=== PATIENT | male | born 1950 | race Caucasian/White ===

== ENCOUNTER 2016-10-12 10:33 | Day surgery (SDC) | payer OTHER ==
[2016-10-10 14:18] VITALS: BMI 29.8
[~2016-10-12 10:33] MED LIST: LACTATED RINGERS 1,000 ML IV SCH
[2016-10-12 11:04] VITALS: RESP 16; TEMP 97.7
[2016-10-12] MEDS ORDERED: PROPOFOL 10 MG/ML 20 ML VIAL IV ONE (11:31)
[2016-10-12] MEDS ORDERED: LIDOCAINE 1% INJ 10MG/ML (20 ML MDV) ONE (11:31)
--- NOTE | 2016-10-12 12:16 | P.PCN ---
Date of Procedure: 10/12/16 Procedure(s) Performed: BRIEF HISTORY: Patient is a 66-year-old pleasant white male, scheduled for an elective colonoscopy as a part of screening for colon rectal neoplasia PROCEDURE PERFORMED: Colonoscopy with snare polypectomy PREOPERATIVE DIAGNOSIS: Screening for colon cancer. IV sedation per Anesthesia. PROCEDURE: After informed consent was obtained, the patient, was brought into the endoscopy unit. IV sedation was administered by Anesthesia under continuous monitoring. Digital rectal examination was normal. Initially the Olympus CF- 160 flexible video colonoscope was then inserted in the rectum, gradually advanced into the ascending colon with moderate to severe difficulty. At one point and the scope was changed and a pediatric colonoscope was then introduced into the rectum. Despite multiple attempts I was not able to advance the scope into the cecum but the ileocecal valve and part of the cecum could be visualized and appeared normal. Careful examination was performed as the scope was gradually being withdrawn. Ileocecal valve appeared normal. Prep was excellent. Mucosa of the ascending colon, appeared normal. In the transverse colon there was a 5 mm polyp removed by snare polypectomy. In the descending colon there was a 5 mm polyp removed by snare polypectomy. In the sigmoid colon there was a 1 cm polyp removed by snare polypectomy. The rest of the transverse colon, descending colon, sigmoid colon, and rectum appeared normal. Retroflexion was performed in the rectum and no lesions were seen. The patient tolerated the procedure well. IMPRESSION: 5 mm transverse colon polyp status post polypectomy 5 mm descending colon polyp serous was snare polypectomy 1 cm sigmoid colon polyp serous was snare polypectomy RECOMMENDATIONS: Findings of this examination were discussed with the patient as well as his family. He was advised to follow with the biopsy results. If the biopsy shows a tubular adenoma he can have a repeat colonoscopy in 5 years.
[2016-10-12 12:50] VITALS: BP 138/79; PULSE 67
== END 2016-10-12 12:56 | disposition home or self-care (01) ==
LOC: ORWHC2ENDO 10:33
PROVIDERS: ATTEND Internal Medicine Gastroenterology
DX: Z12.11 Encounter for screening for malignant neoplasm of colon (principal); D12.4 Benign neoplasm of descending colon; K63.5 Polyp of colon; I25.10 Atherosclerotic heart disease of native coronary artery without angina pectoris; I10 Essential (primary) hypertension; Z87.891 Personal history of nicotine dependence; E78.5 Hyperlipidemia, unspecified; N40.0 Benign prostatic hyperplasia without lower urinary tract symptoms; K21.9 Gastro-esophageal reflux disease without esophagitis; Z79.82 Long term (current) use of aspirin; Z79.899 Other long term (current) drug therapy
CPT/HCPCS: 88305; 45385; J2001; J2704

== ENCOUNTER 2017-03-08 07:55 | Day surgery (SDC) | payer OTHER ==
[2017-03-05 13:23] VITALS: BMI 31.8
[~2017-03-08 07:55] MED LIST changes: +ASPIRIN 325 MG TAB PO ONE; -LACTATED RINGERS 1,000 ML IV SCH; +SODIUM CHLORIDE 0.9% 1,000 ML in EMPTY BAG 1 BAG IV ONE
[2017-03-08 08:12] VITALS: TEMP 97.8
[2017-03-08] MEDS ORDERED: MIDAZOLAM 2 MG/2 ML VIAL IV ONE (09:25)
[2017-03-08] MEDS ORDERED: LIDOCAINE 2% INJ 20 MG/ML SQ ONE (09:29)
[2017-03-08] MEDS ORDERED: HYDROmorphone 2 MG/ML 1 ML SYRINGE IV ONE (09:34)
[2017-03-08] MEDS ORDERED: IODIXANOL 270 MG/ML 50 ML ML INTRAARTER ONE (09:56)
[2017-03-08] MEDS ORDERED: SODIUM CHLORIDE 0.9% 1,000 ML IV SCH (10:00)
--- NOTE | 2017-03-08 10:39 | AN ---
ANGIOGRAPHY REPORT DATE OF SERVICE: 03/08/2017 PERFORMING PHYSICIAN: Librado Pickard MD, sheet metal assembler. PROCEDURE PERFORMED: 1. An abdominal aortogram. 2. Bilateral lower extremities runoff. 3. Selective right external iliac artery angiogram. 4. Gradient measurement across the right external iliac artery. INDICATION: This is a pleasant 66-year-old gentleman who was experiencing bilateral lower extremity discomfort seems to be intermittent claudication. He underwent an arterial duplex study, which showed moderate to severe bilateral femoral-popliteal disease. He was brought today to undergo a peripheral angiogram. APPROACH: Right common femoral artery. COMPLICATION: None. LEVEL OF SEDATION: Moderate with sedation length of 30 minutes. PROCEDURE DESCRIPTION: After obtaining an informed consent, the patient was brought to the cardiac sawyer cork slabs. The right common femoral artery was cannulated using micropuncture technique, the micropuncture wire passed easily then I placed a 5-Singaporean sheath in the right common femoral artery. Subsequently I did an abdominal aortogram and bilateral lower extremity runoff using 5-Singaporean pigtail catheter which was initially placed at the level of the renal arteries. Then it was pulled into above the bifurcation of the aorta to right and left common iliac arteries. After that, I did pressure gradient measurement across the right external iliac artery as well as selective right external iliac artery angiogram. The procedure was completed without any complication. SELECTIVE PERIPHERAL ANGIOGRAM: 1. The abdominal aorta appears to be calcified with mild disease only. It bifurcates into right common iliac artery and left common iliac artery. 2. COMMON ILIAC ARTERIES: The right and left common iliac arteries are calcified with mild disease only. 3. EXTERNAL ILIAC ARTERIES: The right external iliac artery appeared to be diseased in the range of 50% to 60%, but the gradient measurement across it came in to be 20 mm Hg. The left external iliac artery appears to be angiographically normal. 4. INTERNAL ILIAC ARTERIES: The right and left internal iliac arteries appeared to be patent. 5. COMMON FEMORAL ARTERIES: The right and left common femoral arteries are angiographically normal. 6. PROFUNDA: The right and left profunda are patent. 7. The SFA: The right SFA appeared to have lesion in the range of 50% only. The left SFA has 2 lesions, one in the proximal portion appeared to be in the range of 70% to 80% and one distally appeared to be in the range of 70% to 80% as well. 8. POPLITEAL: The right and left popliteal appeared to be angiographically normal. 9. BELOW THE KNEE. There are 3 vessels runoff below the knee bilaterally. CONCLUSION: 1. Intermediate to severe disease involving the right external iliac artery with a gradient measurement across it came into be about 20 mmHg. 2. Severe disease involving the left SFA. POSTPROCEDURE MANAGEMENT: The patient will be scheduled to undergo a GOLD ASSAYER and stenting of the right external iliac artery as well as atherectomy and GOLD ASSAYER of the left SFA. MMODL / IJN: [id number] /
--- NOTE | 2017-03-08 13:33 | IR ---
EXAMINATION TYPE: IR angio abdominal w runoff DATE OF EXAM: 03/08/2017 COMPARISON: NONE HISTORY: Peripheral vascular occlusive disease. Fluoroscopy was provided to the referring clinician. See dictated report from cardiology.
[2017-03-08 14:10] VITALS: BP 130/81; PULSE 64; RESP 18
== END 2017-03-08 16:22 | disposition home or self-care (01) ==
LOC: CATHCVL 07:55
PROVIDERS: ATTEND Internal Medicine Interventional Cardiology
DX: I70.213 Atherosclerosis of native arteries of extremities with intermittent claudication, bilateral legs (principal); I25.10 Atherosclerotic heart disease of native coronary artery without angina pectoris; I10 Essential (primary) hypertension; Z87.891 Personal history of nicotine dependence; I42.9 Cardiomyopathy, unspecified; M19.90 Unspecified osteoarthritis, unspecified site; E78.5 Hyperlipidemia, unspecified; Z79.82 Long term (current) use of aspirin; Z79.899 Other long term (current) drug therapy; Z95.5 Presence of coronary angioplasty implant and graft
CPT/HCPCS: 99152; 99153; 36200; 75625; 75716; C1894; C1769 ×4; J2001; J2250; J1170; Q9966

== ENCOUNTER 2017-03-13 12:15 | Day surgery (SDC) | payer OTHER ==
[~2017-03-13 12:15] MED LIST changes: +ALPRAZolam 0.25 MG TAB PO PRN; -ASPIRIN 325 MG TAB PO ONE; +ASPIRIN 325 MG TAB PO STA
[2017-03-13] MEDS ORDERED: LIDOCAINE 2% INJ 20 MG/ML SQ ONE (15:02)
[2017-03-13] MEDS ORDERED: MIDAZOLAM 2 MG/2 ML VIAL IVP ONE (15:04)
[2017-03-13] MEDS ORDERED: HEPARIN SODIUM 1,000 UN/ML (10ML VL) IV ONE (15:07)
[2017-03-13] MEDS: NITROGLYCERIN 1000MCG/10ML SYRINGE INTRAARTER ONE ×2 (15:34→15:36)
[2017-03-13] MEDS ORDERED: niCARdipine Syringe (1,000 mcg/10 mL) INTRAARTER ONE (15:36)
[2017-03-13] MEDS ORDERED: CLOPIDOGREL 75 MG TAB PO ONE (15:55)
[2017-03-13] MEDS ORDERED: NITROGLYCERIN SL TABS 0.4 MG TAB SUBLINGUAL PRN (16:02)
[2017-03-13] MEDS ORDERED: IODIXANOL 320 MG/ML 100 ML INTRAARTER ONE (16:08)
[2017-03-13] MEDS ORDERED: SODIUM CHLORIDE 0.9% 1,000 ML IV SCH (16:15)
--- NOTE | 2017-03-13 16:47 | IR ---
Fluoroscopy HISTORY: Peripheral vascular disease 13.6 minutes fluoroscopy time supplied to the referring clinician. 163 intraoperative C-arm images d ocument the procedure. See dictated report from cardiology.
[2017-03-13 17:04] VITALS: BMI 31.4
--- NOTE | 2017-03-13 17:23 | AN ---
ANGIOGRAPHY REPORT PERFORMING PHYSICIAN: Librado Pickard M.D., public address system mechanic. PROCEDURES PERFORMED: 1. Selective left [id number] angiogram. 2. Selective left SFA angiogram. 3. Selective right external iliac artery angiogram. 4. Selective right common femoral artery angiogram. 5. Atherectomy of the left SFA using the TurboHawk device. 6. Successful balloon angioplasty of the left SFA using 6.0 mm drug-coated balloon with good angiographic results. 7. Successful stenting of the right external iliac artery using an 8.0 x 40 self- expandable stent with good angiographic results. INDICATION: This is a pleasant 66-year-old gentleman who was experiencing bilateral lower extremity intermittent claudication and underwent a peripheral angiogram a few weeks ago that showed severe disease involving the right external iliac artery and left SFA. He was brought today to undergo an intervention. APPROACH: Right common femoral artery. COMPLICATIONS: None. LEVEL OF SEDATION: Moderate with sedation length of 1 hour. PROCEDURE DESCRIPTION: After obtaining informed consent, the patient was brought to cardiac laboratory scientist. The right common femoral artery was cannulated using micropuncture technique, and the micropuncture wire passed easily. Then I placed a 6-Faroese sheath in the right common femoral artery. At that point, anticoagulation was initiated using heparin. The patient was given 10,000 units of heparin IV with continuous monitoring of ACT during the procedure. After that I selected the left SFA using a 5-Faroese RIM catheter with an 0.035 Advantage wire. After that I exchanged my 11 cm 6-Faroese sheath for a 55 cm 6-Faroese sheath over the Advantage wire. After that I exchanged my 0.035 wire for an 0.014 wire using an 0.035 Quick Cross catheter. After that I did an atherectomy of the left SFA using the TurboHawk device and I was able to extract plaque from the left SFA. After that I did balloon angioplasty, initially using a 5 mm balloon and then a 6 mm drug-coated balloon which was inflated for 3 minutes in the left SFA. The following angiogram showed good angiographic results. Please note that I was able to extract a significant amount of plaque from the left SFA. After that I pulled my sheath distal to the left external iliac artery lesion. After that I did balloon angioplasty using a 6 mm balloon. After that I deployed an 8 x 40 mm self-expandable stent where the stent was positioned under fluoroscopy guidance and deployed after that. I postdilated the stent using a 7 mm balloon. The following angiogram showed good angiographic results. After that I did selective right common femoral artery angiogram. POST-PROCEDURE MANAGEMENT: 1. Dual anti-platelet therapy. 2. Risk factor modifications. 3. Follow up with the patient. GISELE / PAULA: [id number] /
[2017-03-13] MEDS ORDERED: LISINOPRIL 5 MG TAB PO SCH (21:00)
[2017-03-13] MEDS ORDERED: FUROSEMIDE 40 MG TAB PO SCH (21:00)
[2017-03-13] MEDS ORDERED: ATORVASTATIN 80 MG TAB PO SCH (21:00)
[2017-03-13] MEDS ORDERED: TAMSULOSIN 0.4 MG CAP.ER.24H PO SCH (21:00)
[2017-03-13] MEDS ORDERED: ASPIRIN 325 MG TAB PO SCH (21:00)
[2017-03-13] MEDS ORDERED: ATROPINE SULFATE 0.1 MG/ML 10ML SYRINGE ONE (21:50)
[2017-03-13] MEDS: METOPROLOL TARTRATE 12.5 MG TAB PO SCH (23:12)
[2017-03-14 06:27] LABS: Basophils % (A) 0 %; CH 30.5; Eosinophils # (A) 0.4 k/uL (0-0.7); Eosinophils % (A) 4 %; HCT 49.3 % (39.0-53.0); HDW 2.41; HGB 15.7 gm/dL (13.0-17.5); Luc # (Auto) 0.17; Luc % (Auto) 2; Lymphocytes # (A) 1.7 k/uL (1.0-4.8); Lymphocytes % (A) 17 %; MCH 30.5 pg (25.0-35.0); MCHC 31.9 g/dL (31.0-37.0); MCV 95.6 fL (80.0-100.0); Mean Platelet Volume 9.1; Monocytes # (A) 0.7 k/uL (0-1.0); Monocytes % (A) 7 %; Neutrophils # (A) 7.2 k/uL (1.3-7.7); Neutrophils % (A) 72 %; RBC 5.16 m/uL (4.30-5.90); RDW 13.5 % (11.5-15.5); WBC (Perox) 9.59
[2017-03-14 06:43] LABS: Anion Gap 9 mmol/L; Blood Urea Nitrogen 22 mg/dL (9-20); Calcium 8.9 mg/dL (8.4-10.2); Carbon Dioxide 27 mmol/L (22-30); Chloride 104 mmol/L (98-107); Glucose 110 mg/dL (74-99); Non-African American GFR(MDRD) >60 (>60 ml/min/1.73 sqM); Sodium 140 mmol/L (137-145)
[2017-03-14] MEDS: METOPROLOL TARTRATE 12.5 MG TAB PO SCH (08:18)
[2017-03-14 08:53] VITALS: BP 118/64; PULSE 84; RESP 16; TEMP 97.4
[2017-03-14] MEDS ORDERED: CLOPIDOGREL 75 MG TAB PO SCH (09:00)
--- NOTE | 2017-03-14 10:02 | DS ---
DISCHARGE SUMMARY DATE OF ADMISSION: 03/13/2017 DATE OF DISCHARGE: 03/14/2017 BRIEF HISTORY: This is a pleasant 66-year-old gentleman who was admitted to the hospital yesterday and underwent successful balloon angioplasty and stenting of the right external iliac artery and successful atherectomy and balloon angioplasty of the left superficial femoral artery with good angiographic results and without any complication. I am going to discharge the patient home today on dual anti-platelet therapy and statin. The procedure was performed from a right groin approach, which is soft and nontender and without any bruises. I will follow up with the patient next week in the office. MMODL / IJN: [id number] /
== END 2017-03-14 11:38 | disposition home or self-care (01) ==
LOC: CATHCVL 12:15 → 6SEL 15:58 → CATHCVL 03-14 11:38
PROVIDERS: ATTEND Internal Medicine Interventional Cardiology
DX: I70.213 Atherosclerosis of native arteries of extremities with intermittent claudication, bilateral legs (principal); I25.10 Atherosclerotic heart disease of native coronary artery without angina pectoris; I10 Essential (primary) hypertension; Z87.891 Personal history of nicotine dependence; E78.5 Hyperlipidemia, unspecified; Z95.5 Presence of coronary angioplasty implant and graft; I42.9 Cardiomyopathy, unspecified; M19.90 Unspecified osteoarthritis, unspecified site; Z79.82 Long term (current) use of aspirin; Z79.899 Other long term (current) drug therapy
CPT/HCPCS: 99152; 99153 ×3; 37221; 37225; 80048; 85025; C1894 ×2; C1725 ×2; C1876; C1769 ×5; C1887; C1714; C2623; J2001; J2250; Q9967; J1644

== ENCOUNTER 2019-04-02 07:26 | Emergency (ER) | payer OTHER ==
[2019-04-02 07:34] VITALS: BP 152/79; PULSE 66; TEMP 98.4
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
[2019-04-02] MEDS ORDERED: TOPICAL SKIN ADHESIVE 1 EACH AMP TOPICAL ONE (09:01)
[2019-04-02 09:03] VITALS: RESP 20
== END 2019-04-02 09:11 | disposition home or self-care (01) ==
LOC: EC 07:26
DX: S61.412A Laceration without foreign body of left hand, initial encounter (principal); S00.93XA Contusion of unspecified part of head, initial encounter; I20.9 Angina pectoris, unspecified; I10 Essential (primary) hypertension; M19.90 Unspecified osteoarthritis, unspecified site; N42.9 Disorder of prostate, unspecified; Z87.891 Personal history of nicotine dependence; Z79.02 Long term (current) use of antithrombotics/antiplatelets; Z79.82 Long term (current) use of aspirin; Z79.899 Other long term (current) drug therapy; Z95.5 Presence of coronary angioplasty implant and graft; V49.49XA Driver injured in collision with other motor vehicles in traffic accident, initial encounter; Y93.89 Activity, other specified; Y92.410 Unspecified street and highway as the place of occurrence of the external cause
CPT/HCPCS: 12001; 70450; 72125; 99284

== ENCOUNTER → 2020-01-19 | Outpatient (CLI) | payer OTHER ==
[2020-01-19 09:40] LABS: HCT 47.3 % (39.0-53.0); HGB 14.7 gm/dL (13.0-17.5); MCH 29.5 pg (25.0-35.0); MCHC 31.1 g/dL (31.0-37.0); MCV 94.8 fL (80.0-100.0); Mean Platelet Volume 9.7; Platelet Count 204 k/uL (150-450); RBC 4.99 m/uL (4.30-5.90); RDW 13.2 % (11.5-15.5); WBC 7.5 k/uL (3.8-10.6)
[2020-01-19 09:54] LABS: African American GFR (CKD) >90 (>60 ml/min/1.73 sqM); Anion Gap 8 mmol/L; Blood Urea Nitrogen 19 mg/dL (9-20); Carbon Dioxide 30 mmol/L (22-30); Chloride 102 mmol/L (98-107); Non-African American GFR(CKD) 78 (>60 ml/min/1.73 sqM); Potassium 4.1 mmol/L (3.5-5.1); Sodium 140 mmol/L (137-145)
== END | disposition home or self-care (01) ==
LOC: LABPAT 08:20
PROVIDERS: ATTEND Internal Medicine Interventional Cardiology
DX: Z01.818 Encounter for other preprocedural examination (principal); I70.213 Atherosclerosis of native arteries of extremities with intermittent claudication, bilateral legs
CPT/HCPCS: 36415; 80051; 82565; 84520; 85027

== ENCOUNTER 2020-01-22 06:28 | Day surgery (SDC) | payer OTHER ==
[2020-01-18 14:07] VITALS: BMI 33.2
[~2020-01-22 06:28] MED LIST changes: +ALPRAZolam 0.5 MG TAB PO PRN; -ASPIRIN 325 MG TAB PO STA; +ZOLPIDEM 5 MG TAB PO PRN
[2020-01-22] MEDS ORDERED: ASPIRIN 325 MG TAB PO ONE (07:00)
[2020-01-22 07:03] LABS: Glucose,Whole Blood 136 mg/dL (75-99)
[2020-01-22 07:05] VITALS: RESP 16; TEMP 97.8
[2020-01-22] MEDS ORDERED: SODIUM CHLORIDE 0.9% 1,000 ML IV ONE (07:05)
[2020-01-22] MEDS ORDERED: MIDAZOLAM 2 MG/2 ML VIAL IV ONE (07:49)
[2020-01-22] MEDS ORDERED: LIDOCAINE 1% INJ 10MG/ML (20 ML MDV) SQ ONE (07:51)
[2020-01-22] MEDS ORDERED: IOPAMIDOL-250 100ML BTL INTRAARTER ONE (08:02)
[2020-01-22] MEDS ORDERED: SODIUM CHLORIDE 0.9% 1,000 ML IV SCH (08:15)
--- NOTE | 2020-01-22 08:34 | LTR ---
01/22/2020 Dr. Tal Walsh RE: Darryl Melinda Dear Dr. Walsh: Mr. Darryl Lawrence underwent today an abdominal aortogram and bilateral lower extremity runoff that revealed patent stent in the right iliac artery and intermediate to severe disease involving the left femoral artery. I advised at this point to maximize medical treatment and follow up with the patient. Thank you for allowing us to participate in his care and please do not hesitate to call if you have any questions or concern. Sincerely, Librado Pickard M.D. GISELE / PAULA: [id number] /
--- NOTE | 2020-01-22 09:00 | AN ---
ANGIOGRAPHY REPORT DATE OF SERVICE: 01/22/2020 PERFORMING PHYSICIAN: Librado Pickard MD. PROCEDURE PERFORMED: 1. An abdominal aortogram. 2. Bilateral lower extremities runoff. INDICATION: This is a 69-year-old gentleman with coronary artery disease as well as peripheral arterial disease and prior angioplasty of the right iliac and left SFA. He was experiencing bilateral lower extremities intermittent claudication, worse on the right side than the left side. Because of that, he underwent an arterial duplex study and that came to be abnormal. He is scheduled today to undergo an aortogram with runoff. APPROACH: Right common femoral artery. COMPLICATION: None. LEVEL OF SEDATION: Moderate with sedation length of 15 minutes. PROCEDURE DESCRIPTION: After obtaining an informed consent, the patient was brought to the cardiac crown and bridge dental lab technician. The right common femoral artery was cannulated using micropuncture technique, the micropuncture wire passed easily. Then I placed a 6-Colombian sheath at the right common femoral artery. After that I did an abdominal aortogram and bilateral lower extremities runoff using 5- Colombian pigtail catheter which was initially placed at the level of the arteries and it was pulled into above the bifurcation of the aorta into right and left common iliac arteries. The procedure was completed without any complication. Selective peripheral angiogram: 1. The aorta appeared to be angiographically normal. 2. Common iliac arteries: The right and left common iliac arteries appeared to be angiographically normal. 3. Internal iliac arteries both are patent. 4. External iliac arteries both appeared to be angiographically normal. 5. Common femoral arteries both appeared to be angiographically normal. 6. Profunda both are patent. 7. SFA: The right SFA has mild disease only and the left SFA appeared to have intermediate to severe disease in the range of 60% to 70%. 8. Popliteals both appear to be angiographically normal. 9. Below the knee: There are 3 vessel runoff below the knee bilaterally. CONCLUSION: 1. Patent stent in the right external iliac artery. 2. Intermediate to severe disease involving the left superficial femoral artery. POSTPROCEDURE MANAGEMENT: 1. Medical treatment. 2. If he develops any symptoms in the left leg, we will consider doing a SEA AIR LAND OFFICER of the left SFA. MMODL / IJN: [id number] /
--- NOTE | 2020-01-22 13:00 | IR ---
EXAMINATION TYPE: IR angio abdominal w runoff DATE OF EXAM: 01/22/2020 COMPARISON: NONE HISTORY: Peripheral vascular disease. Right and left leg pain. TECHNIQUE: Fluoroscopy. FINDINGS: Fluoroscopic guidance was provided during procedure performed by Dr. Cihu. A total of 1. 3 minutes of fluoroscopic time was utilized during the procedure and 86 spot images was acquired. Ple ase see operative report for additional details. IMPRESSION: As Above.
[2020-01-22 13:52] VITALS: BP 123/65; PULSE 58
== END 2020-01-22 14:16 | disposition home or self-care (01) ==
LOC: CATHCVL 06:28
PROVIDERS: ATTEND Internal Medicine Interventional Cardiology
DX: I70.213 Atherosclerosis of native arteries of extremities with intermittent claudication, bilateral legs (principal); I25.10 Atherosclerotic heart disease of native coronary artery without angina pectoris; I42.9 Cardiomyopathy, unspecified; I10 Essential (primary) hypertension; E78.5 Hyperlipidemia, unspecified; M19.90 Unspecified osteoarthritis, unspecified site; E66.9 Obesity, unspecified; Z95.5 Presence of coronary angioplasty implant and graft; Z95.820 Peripheral vascular angioplasty status with implants and grafts; Z72.0 Tobacco use; Z79.899 Other long term (current) drug therapy; Z79.82 Long term (current) use of aspirin; Z79.02 Long term (current) use of antithrombotics/antiplatelets; Z68.33 Body mass index [BMI] 33.0-33.9, adult
CPT/HCPCS: 36200; 75625; 75716; C1769 ×4; C1894; J2250; J2001; Q9966

== ENCOUNTER → 2020-04-07 | Outpatient (CLI) | payer OTHER ==
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
== END | disposition home or self-care (01) ==
LOC: RADCTMAIN 12:32
PROVIDERS: ATTEND Physical Medicine & Rehabilitation
DX: M48.061 Spinal stenosis, lumbar region without neurogenic claudication (principal); M51.37 Other intervertebral disc degeneration, lumbosacral region; M47.816 Spondylosis without myelopathy or radiculopathy, lumbar region; M43.27 Fusion of spine, lumbosacral region; Z79.01 Long term (current) use of anticoagulants
CPT/HCPCS: 72131

== ENCOUNTER → 2020-05-16 | Outpatient (CLI) | payer OTHER ==
[2020-05-16 11:43] LABS: HCT 51.5 % (39.0-53.0); HGB 17.1 gm/dL (13.0-17.5); MCH 30.8 pg (25.0-35.0); MCHC 33.2 g/dL (31.0-37.0); MCV 92.7 fL (80.0-100.0); Mean Platelet Volume 10.3; Platelet Count 194 k/uL (150-450); RBC 5.56 m/uL (4.30-5.90); WBC 9.3 k/uL (3.8-10.6)
[2020-05-16 11:53] LABS: Potassium 4.3 mmol/L (3.5-5.1)
== END | disposition home or self-care (01) ==
LOC: LABPAT 10:22
PROVIDERS: ATTEND Internal Medicine Interventional Cardiology
DX: Z01.818 Encounter for other preprocedural examination (principal); I70.213 Atherosclerosis of native arteries of extremities with intermittent claudication, bilateral legs
CPT/HCPCS: 36415; 80051; 82565; 84520; 85027

== ENCOUNTER 2020-05-18 11:48 | Day surgery (SDC) | payer OTHER ==
[2020-05-16 12:46] VITALS: BMI 32.5
[~2020-05-18 11:48] MED LIST changes: -ALPRAZolam 0.5 MG TAB PO PRN; +ASPIRIN 325 MG TAB PO PRN; -ZOLPIDEM 5 MG TAB PO PRN
[2020-05-18] MEDS ORDERED: SODIUM CHLORIDE 0.9% 1,000 ML IV ONE (11:55)
[2020-05-18 12:12] LABS: Glucose,Whole Blood 143 mg/dL (75-99)
[2020-05-18 12:24] LABS: Basophils # (A) 0.1 k/uL (0-0.2); Basophils % (A) 1 %; Eosinophils # (A) 0.3 k/uL (0-0.7); Eosinophils % (A) 3 %; HGB 17.4 gm/dL (13.0-17.5); Lymphocytes # (A) 3.2 k/uL (1.0-4.8); Lymphocytes % (A) 28 %; MCH 30.5 pg (25.0-35.0); MCHC 32.8 g/dL (31.0-37.0); MCV 93.1 fL (80.0-100.0); Mean Platelet Volume 9.7; Monocytes # (A) 0.7 k/uL (0-1.0); Monocytes % (A) 6 %; Neutrophils # (A) 7.1 k/uL (1.3-7.7); Neutrophils % (A) 62 %; Platelet Count 216 k/uL (150-450); RBC 5.69 m/uL (4.30-5.90); RDW 13.3 % (11.5-15.5); WBC 11.5 k/uL (3.8-10.6)
[2020-05-18 13:57] LABS: Calcium 9.2 mg/dL (8.4-10.2)
[2020-05-18] MEDS ORDERED: MIDAZOLAM 2 MG/2 ML VIAL IVP ONE (14:19)
[2020-05-18] MEDS ORDERED: LIDOCAINE 1% INJ 10MG/ML (20 ML MDV) SQ ONE (14:19)
[2020-05-18] MEDS ORDERED: HEPARIN SODIUM 1,000 UN/ML (10ML VL) IV ONE (14:25)
[2020-05-18] MEDS ORDERED: fentaNYL (PF) 50 MCG/ML 2 ML AMP IV ONE (14:58)
[2020-05-18] MEDS ORDERED: CLOPIDOGREL 75 MG TAB PO ONE (15:02)
[2020-05-18] MEDS ORDERED: IOPAMIDOL-250 100ML BTL INTRAARTER ONE (15:05)
[2020-05-18] MEDS ORDERED: NITROGLYCERIN SL TABS 0.4 MG TAB SUBLINGUAL PRN (16:05)
[2020-05-18] MEDS ORDERED: HYDROmorphone 0.5 MG/0.5 ML SYRINGE IVP PRN (16:06)
[2020-05-18] MEDS ORDERED: hydrALAZINE HCL 20 MG/ML 1 ML VIAL IVP STA (16:07)
[2020-05-18] MEDS ORDERED: SODIUM CHLORIDE 0.9% 1,000 ML IV SCH (16:15)
[2020-05-18] MEDS: lisinopriL 5 MG TAB PO SCH (16:58)
[2020-05-18] MEDS: METOPROLOL TARTRATE 12.5 MG TAB PO SCH (16:59)
--- NOTE | 2020-05-18 20:19 | PCN ---
PROCEDURE NOTE DATE OF SERVICE: 05/18/2020 PERFORMING PHYSICIAN: Librado Pickard M.D. PROCEDURES PERFORMED: 1. Atherectomy of the left SFA using the TurboHawk device. 2. Successful balloon angioplasty of the left SFA using a 6 x 120 mm drug-coated balloon with an excellent angiographic result. 3. Gradient measurement across the left SFA. 4. Left lower extremity angiogram. 5. Right common femoral artery angiogram. INDICATION: This is a 69-year-old gentleman with history of hypertension, dyslipidemia and peripheral arterial disease who was experiencing left leg intermittent claudication. He underwent an angiogram which revealed intermediate to severe lesion involving the mid left SFA. APPROACH: Right common femoral artery. COMPLICATIONS: None. LEVEL OF SEDATION: Moderate, with sedation length of 51 minutes. PROCEDURE DESCRIPTION: After obtaining informed consent, the patient was brought to the cardiac component lab tech. The right common femoral artery was cannulated using micropuncture technique. The micropuncture wire passed easily. Then I placed a 70 cm 6-Ecuadorean Raabe sheath over an 0.035 stiff Glidewire. I did go up and over using an 0.035 stiff Glidewire with the back-up support of 5- Ecuadorean RIM catheter. After that the sheath was advanced all the way to the left common femoral artery. Left lower extremity angiogram was performed and revealed intermediate to severe lesion involving the mid to distal left SFA. Gradient measurement was performed using an 0.035 catheter. The gradient measured about 25 to 30 mmHg. Because of that I decided to fix the lesion. I did wire the lesion using an 0.014 wire. I did atherectomy using the TurboHawk device. I did extract a significant amount of plaque. Subsequently I did balloon angioplasty using a 6 x 120 mm drug-coated balloon, and the following angiogram showed excellent angiographic results. The procedure was completed without any complication. POST-PROCEDURE MANAGEMENT: 1. Dual anti-platelet therapy. 2. Risk factor modifications. 3. Follow up with the patient. MMODL / IJN: [id number] /
[2020-05-19] MEDS: METOPROLOL TARTRATE 12.5 MG TAB PO SCH (08:52)
[2020-05-19] MEDS: lisinopriL 5 MG TAB PO SCH (08:52)
[2020-05-19] MEDS ORDERED: TAMSULOSIN 0.4 MG CAP.ER.24H PO SCH (09:00)
[2020-05-19] MEDS ORDERED: CLOPIDOGREL 75 MG TAB PO SCH (09:00)
[2020-05-19] MEDS ORDERED: ASPIRIN 81 MG PO SCH (09:00)
[2020-05-19] MEDS ORDERED: FUROSEMIDE 40 MG TAB PO SCH (09:00)
[2020-05-19] MEDS ORDERED: lisinopriL 5 MG TAB PO SCH (09:00)
[2020-05-19] MEDS ORDERED: ATORVASTATIN 80 MG TAB PO SCH (09:00)
[2020-05-19 09:15] VITALS: BP 145/75; PULSE 86; RESP 18; TEMP 98.5
--- NOTE | 2020-05-19 10:15 | DS ---
DISCHARGE SUMMARY ADMISSION DATE: 05/18/2020 DISCHARGE DATE: 05/19/2020 BRIEF HISTORY: This is a 69-year-old gentleman who underwent yesterday successful atherectomy and balloon angioplasty of the left SFA from right groin approach. He was seen this morning. He is asymptomatic. The right groin is soft and nontender and without any bruises. He is going to be discharged on dual anti-platelet therapy along with high intensity statin and I will follow up with the patient next week in the office. MMSHONA / STEPHYN: [id number] /
--- NOTE | 2020-05-19 12:08 | IR ---
EXAMINATION TYPE: IR bellhop service captain femoral popliteal DATE OF EXAM: 05/18/2020 COMPARISON: NONE HISTORY: Fluoroscopy time. Fluoroscopy was provided to the referring clinician.
== END 2020-05-19 09:49 | disposition home or self-care (01) ==
LOC: CATHCVL 11:48 → 3SCARD 15:02 → CATHCVL 05-19 09:49
PROVIDERS: ATTEND Internal Medicine Interventional Cardiology
DX: I70.213 Atherosclerosis of native arteries of extremities with intermittent claudication, bilateral legs (principal); I25.10 Atherosclerotic heart disease of native coronary artery without angina pectoris; I10 Essential (primary) hypertension; E78.5 Hyperlipidemia, unspecified; I42.9 Cardiomyopathy, unspecified; M19.90 Unspecified osteoarthritis, unspecified site; E66.9 Obesity, unspecified; Z95.5 Presence of coronary angioplasty implant and graft; Z95.820 Peripheral vascular angioplasty status with implants and grafts; Z98.41 Cataract extraction status, right eye; Z72.0 Tobacco use; Z79.899 Other long term (current) drug therapy; Z79.82 Long term (current) use of aspirin; Z79.02 Long term (current) use of antithrombotics/antiplatelets; Z79.84 Long term (current) use of oral hypoglycemic drugs; Z68.31 Body mass index [BMI] 31.0-31.9, adult
CPT/HCPCS: 37225; 85347; 80048; 85025; C1894 ×2; C1769 ×5; C1714; C2623; C1725; J2250; J0360; J2001; J3010; J1644; J1170; Q9966

== ENCOUNTER 2020-07-11 10:19 | Day surgery (SDC) | payer OTHER ==
[2020-07-07 14:57] VITALS: BMI 32.1
[~2020-07-11 10:19] MED LIST changes: +ALPRAZolam 0.5 MG TAB PO PRN; -ASPIRIN 325 MG TAB PO PRN; +ASPIRIN 325 MG TAB PO STA; +HEPARIN SODIUM,PORCINE 10,000 UNIT in SODIUM CHLORIDE 0.9% 1,000 ML IRRIGATION PRN; +HEPARIN SODIUM,PORCINE 2,500 UNIT in SODIUM CHLORIDE 0.9% 250 ML IRRIGATION PRN; +NITROGLYCERIN SL TABS 0.4 MG TAB SUBLINGUAL PRN
[2020-07-11] MEDS ORDERED: SODIUM CHLORIDE 0.9% 1,000 ML IV ONE (10:36)
[2020-07-11] MEDS ORDERED: VERAPAMIL 2.5 MG/ML 2 ML AMP ONE (10:38)
[2020-07-11] MEDS ORDERED: HEPARIN SODIUM 1,000 UN/ML (10ML VL) ONE (10:38)
[2020-07-11] MEDS ORDERED: LIDOCAINE 1% INJ 10MG/ML (20 ML MDV) ONE ×2 (10:38→11:35)
[2020-07-11 10:49] LABS: Glucose,Whole Blood 156 mg/dL (75-99)
[2020-07-11] MEDS ORDERED: MIDAZOLAM 2 MG/2 ML VIAL IV ONE (11:31)
[2020-07-11] MEDS ORDERED: LIDOCAINE 1% INJ 10MG/ML (20 ML MDV) SQ ONE ×2 (11:33→11:35)
[2020-07-11] MEDS ORDERED: IOPAMIDOL-370 125ML BTL INJ ONE (11:46)
[2020-07-11] MEDS ORDERED: RX INFO: IV CONTRAST WAS GIVEN 1 EACH MISC MISCELLANE PRN ×2 (11:54→14:22)
[2020-07-11] MEDS ORDERED: SODIUM CHLORIDE 0.9% 1,000 ML IV SCH ×2 (12:00)
--- NOTE | 2020-07-11 13:02 | CC ---
CARDIAC CATHETERIZATION REPORT DATE OF SERVICE: July 11, 2020 PERFORMING PHYSICIAN: Librado Pickard MD. PROCEDURE PERFORMED: 1. Selective right and left coronary angiogram. 2. Left heart catheterization. INDICATIONS: This is a 69-year-old gentleman with coronary artery disease and prior stenting of the ramus intermedius as well as peripheral arterial disease who was experiencing symptoms of chest discomfort and underwent myocardial perfusion imaging stress test and that came in to be abnormal showing ischemia anteriorly. Because of that, a heart catheterization was advised. APPROACH: Right common femoral artery. COMPLICATION: None. LEVEL OF SEDATION: Moderate with sedation length of 16 minutes. PROCEDURE DESCRIPTION: After obtaining an informed consent, the patient was brought to the cardiac cath lab technologist. The right common femoral artery was cannulated using micropuncture technique, the micropuncture wire passed easily then I placed a 6-Djiboutian sheath at the right common femoral artery. After that I did selective right and left coronary angiogram with JL4 and JR4 catheters. Left heart catheterization was performed using 5-Djiboutian pigtail catheter. The procedure was completed without any complication. SELECTIVE CORONARY ANGIOGRAM: 1. The right coronary artery is a large caliber vessel and it is a dominant vessel. The RCA is angiographically normal. It distally bifurcates into PDA and PLV branches, both appeared to be angiographically normal. 2. The Left Main: The left main coronary artery appeared to be angiographically normal. It bifurcates into LCX and ramus intermedius and left anterior descending artery. 3. The LCX is a large caliber vessel. It is a nondominant vessel. The ostial LCX has a lesion appeared to be in the range of 40%. 4. The ramus intermedius is stented with mild in-stent restenosis. 5. The LAD is a large caliber vessel. The LAD is angiographically normal. The LAD gives rise into a diagonal branch which seems to be angiographically normal. HEMODYNAMICS: The LVEDP was about 5 mmHg without significant gradient across the aortic valve. CONCLUSION: 1. Mild in-stent restenosis involving the ramus intermedius coronary artery. 2. Normal LVEDP. POSTPROCEDURE MANAGEMENT: 1. Medical treatment. 2. Follow up with the patient. MMODL / IJN: [id number] /
[2020-07-11 13:23] LABS: Basophils % (A) 0 %; Eosinophils # (A) 0.4 k/uL (0-0.7); Eosinophils % (A) 6 %; HCT 50.7 % (39.0-53.0); Lymphocytes % (A) 28 %; MCH 30.9 pg (25.0-35.0); MCHC 33.6 g/dL (31.0-37.0); MCV 91.9 fL (80.0-100.0); Mean Platelet Volume 10.5; Monocytes # (A) 0.5 k/uL (0-1.0); Monocytes % (A) 7 %; Neutrophils # (A) 4.2 k/uL (1.3-7.7); Neutrophils % (A) 57 %; Platelet Count 197 k/uL (150-450); RBC 5.51 m/uL (4.30-5.90); WBC 7.3 k/uL (3.8-10.6)
[2020-07-11 13:24] LABS: African American GFR (CKD) 81 (>60 ml/min/1.73 sqM); Anion Gap 11 mmol/L; Blood Urea Nitrogen 16 mg/dL (9-20); Calcium 8.9 mg/dL (8.4-10.2); Carbon Dioxide 25 mmol/L (22-30); Chloride 102 mmol/L (98-107); Glucose 183 mg/dL (74-99); Non-African American GFR(CKD) 70 (>60 ml/min/1.73 sqM); Potassium 4.6 mmol/L (3.5-5.1); Sodium 138 mmol/L (137-145)
[2020-07-11 15:02] VITALS: RESP 18; TEMP 97.9
[2020-07-12 01:00] VITALS: PULSE 77
[2020-07-12 01:02] VITALS: BP 127/80
== END 2020-07-11 20:20 | disposition home or self-care (01) ==
LOC: OR 10:19 → CATHCVL 10:19 → 6NMEDSUR 11:59 → CATHCVL 11:59 → UNDOADMOB 11:59 → INTOOBSV 11:59 → 6NMEDSUR 14:06 → CATHCVL 14:06 → UNDODISOB 20:20 → OR 20:20 → EDSTATUS 07-12 07:30
PROVIDERS: ATTEND Internal Medicine Interventional Cardiology
DX: I25.110 Atherosclerotic heart disease of native coronary artery with unstable angina pectoris (principal); T82.855A Stenosis of coronary artery stent, initial encounter; Z95.5 Presence of coronary angioplasty implant and graft; I73.9 Peripheral vascular disease, unspecified; Z95.820 Peripheral vascular angioplasty status with implants and grafts; I10 Essential (primary) hypertension; E78.00 Pure hypercholesterolemia, unspecified; E78.5 Hyperlipidemia, unspecified; Z72.0 Tobacco use; M19.90 Unspecified osteoarthritis, unspecified site; E66.3 Overweight; Z68.32 Body mass index [BMI] 32.0-32.9, adult; Z79.899 Other long term (current) drug therapy; Z79.82 Long term (current) use of aspirin; Z79.02 Long term (current) use of antithrombotics/antiplatelets; Z79.84 Long term (current) use of oral hypoglycemic drugs
CPT/HCPCS: 93458; 80048; 85025; C1769 ×3; C1894; J2250; J2001; Q9967

== ENCOUNTER 2021-08-08 13:19 | Emergency (ER) | payer MEDICARE, OTHER ==
[2021-08-08 13:32] VITALS: TEMP 98.2
--- NOTE | 2021-08-08 15:37 | XR ---
KUB HISTORY: Abdominal pain, constipation Frontal KUB and 2 images, no comparisons Metallic densities are present over the lower abdomen. There are air-fluid levels present without pne umoperitoneum. Lung bases are clear. There is a spinal curvature, degenerative disc change. Arthropat hy noted in the hips. IMPRESSION: Correlate for ileus, enteritis, follow-up as indicated for small bowel obstruction
[2021-08-08 16:30] LABS: Basophils # (A) 0.1 k/uL (0-0.2); Basophils % (A) 1 %; Eosinophils # (A) 0.2 k/uL (0-0.7); Eosinophils % (A) 2 %; HCT 51.8 % (39.0-53.0); Lymphocytes # (A) 0.9 k/uL (1.0-4.8); Lymphocytes % (A) 7 %; MCH 31.6 pg (25.0-35.0); MCHC 32.9 g/dL (31.0-37.0); MCV 96.2 fL (80.0-100.0); Mean Platelet Volume 9.5; Monocytes # (A) 0.8 k/uL (0-1.0); Monocytes % (A) 6 %; Neutrophils # (A) 10.3 k/uL (1.3-7.7); Neutrophils % (A) 83 %; Platelet Count 196 k/uL (150-450); RBC 5.39 m/uL (4.30-5.90); RDW 12.9 % (11.5-15.5); WBC 12.4 k/uL (3.8-10.6)
[2021-08-08 16:43] LABS: Calcium 9.8 mg/dL (8.4-10.2); Total Bilirubin 1.3 mg/dL (0.2-1.3); Total Protein 7.2 g/dL (6.3-8.2)
[2021-08-08 16:47] LABS: Potassium 4.7 mmol/L (3.5-5.1)
[2021-08-08 17:08] LABS: Appearance,Urine Cloudy (Clear); Bilirubin,Urine 1+ (Negative); Blood,Urine Small (Negative); Calcium Oxalate Crystals,Urine Many /hpf; Color,Urine Yellow; Glucose,Urine (UA) Negative (Negative); Ketones,Urine Negative (Negative); Leukocyte Esterase,Urine Negative (Negative); Mucus,Urine Moderate /hpf; Nitrite,Urine Negative (Negative); PH, Urine 5.5 (5.0-8.0); Protein,Urine Trace (Negative); RBC,Urine 12 /hpf (0-5); Specific Gravity,Urine 1.034 (1.001-1.035); Squamous Epithelial Cell,Urine <1 /hpf (0-4)
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
[2021-08-08 17:55] VITALS: BP 110/58; PULSE 98; RESP 18
== END 2021-08-08 17:52 | disposition home or self-care (01) ==
LOC: EC 13:19
DX: K59.00 Constipation, unspecified (principal); I25.10 Atherosclerotic heart disease of native coronary artery without angina pectoris; E11.9 Type 2 diabetes mellitus without complications; I10 Essential (primary) hypertension; M16.0 Bilateral primary osteoarthritis of hip; M19.90 Unspecified osteoarthritis, unspecified site; Z95.5 Presence of coronary angioplasty implant and graft; Z79.01 Long term (current) use of anticoagulants; Z79.899 Other long term (current) drug therapy; Z79.82 Long term (current) use of aspirin; Z79.84 Long term (current) use of oral hypoglycemic drugs
CPT/HCPCS: 99284; 36415; 80053; 83605; 83690; 85025; 81001; 74018; 74177; Q9967

== ENCOUNTER → 2021-10-04 | Outpatient (CLI) | payer MEDICARE, OTHER ==
--- NOTE | 2021-10-04 08:59 | CT ---
EXAMINATION TYPE: CT lumbar spine wo con DATE OF EXAM: 10/04/2021 8:40 AM COMPARISON: 04/07/2020 HISTORY: Low back pain CT DLP: 1335.10 mGycm Automated exposure control for dose reduction was used. Unenhanced CT of the lumbar spine was performed. Bone and soft tissue window settings are submitted as well as coronal and sagittal reconstructions. L1-L2: Early vacuum disc changes noted. Mild posterior disc bulge. No evidence for disc herniation or protrusion. No central stenosis or foraminal encroachment. L2-L3: Moderate degenerative disc space narrowing. Mild posterior disc bulge. No disc herniation or p rotrusion. No central stenosis. Mild facet joint arthropathy. Neural foramina appear to be patent ania aterally. L3-L4: Moderate degenerative disc space narrowing with posterior disc bulge effacing the ventral thec al sac. There is mild hypertrophy of the ligamentum flavum and facet joint arthropathy contributing t o borderline to mild central stenosis. Mild bilateral foraminal encroachment. L4-L5: Moderate degenerative disc space narrowing with posterior disc bulge effacing the ventral thec al sac. There is mild hypertrophy of the ligamentum flavum and facet joint arthropathy with mild cons triction of the thecal sac without moise central stenosis. Moderate right-sided neural foraminal encr oachment and mild left foraminal encroachment seen. L5-S1: Severe narrowing at L5-S1 with a partial ankylosis. Left paracentral hard disc results in left lateral recess stenosis and severe left foraminal encroachment unchanged from prior study. The right neural foramen appears patent. No central stenosis or disc herniation seen. No evidence for fracture or malalignment. IMPRESSION: 1. Multilevel degenerative disc disease as noted. 2. Borderline central stenosis at L3-4 and L4-5. 3. Left paracentral hard disc resulting in left lateral recess stenosis and left foraminal encroachme nt at L5-S1.
== END | disposition home or self-care (01) ==
LOC: RADCTMAIN 08:11
PROVIDERS: ATTEND Physical Medicine & Rehabilitation
DX: M51.37 Other intervertebral disc degeneration, lumbosacral region (principal); M48.061 Spinal stenosis, lumbar region without neurogenic claudication
CPT/HCPCS: 72131

== ENCOUNTER → 2022-04-13 | Outpatient (CLI) | payer MEDICARE, OTHER ==
--- NOTE | 2022-04-13 15:37 | CT ---
EXAMINATION TYPE: CT abdomen wo con DATE OF EXAM: 04/13/2022 COMPARISON: 08/08/2021 INDICATION: upper abdominal pain that makes it hard for him to breathe.. poss hernia DLP: 744 mGycm, Automated exposure control for dose reduction was used. CONTRAST: 0 mL of Isovue 300. Study performed without Oral Contrast TECHNIQUE: Axial images were obtained from above the diaphragm to the pubic rami in the axial plane a t 5 mm thick sections. Reconstructed images are reviewed on the computer in the coronal plane. FINDINGS: Limited CT sections are obtained the lung bases. The lung bases are clear. There is some elevation of the right diaphragm compared to the left. CT ABDOMEN: Liver: Normal Spleen: Normal Pancreas: Normal Adrenal glands: The adrenal glands are normal. Gallbladder: Normal Kidneys: No masses are evident. No hydronephrosis is present. Cysts are present within me bilateral kidneys measuring 3.3 cm posterior lateral right mid kidney and 2.0 cm within the mid anterior left kidney. Additional smaller cortical renal cysts are present. These appear stable from comparison. No renal stones are evident. Aorta: Vascular calcification is within the aorta. Inferior vena cava: Normal. Loops of bowel within the abdomen and upper pelvis are normal. This study is without oral contras t limiting bowel evaluation. IMPRESSIONS: 1. No suspicious changes to account for shortness of breath. No diaphragmatic hernia or lung base ab normalities evident. 2 bilateral renal cysts.
== END | disposition home or self-care (01) ==
LOC: RADCTMAIN 14:55
PROVIDERS: ATTEND Internal Medicine Geriatric Medicine
DX: N28.1 Cyst of kidney, acquired (principal)
CPT/HCPCS: 74150

== ENCOUNTER → 2022-12-12 | Outpatient (CLI) | payer MEDICARE, OTHER ==
[2022-12-12 15:27] LABS: HCT 47.6 % (39.6-50.0); HGB 15.1 d/dL (12.0-15.0); MCH 30.2 pg (27.0-32.0); MCHC 31.7 d/dL (32.0-37.0); MCV 95.2 FL (80.0-97.0); Mean Platelet Volume 12.3 FL (9.5-12.2); NRBC Per 100 WBC 0 X 10*3/uL (0.00-0.01); Platelet Count 203 X 10*3/uL (140-440); RDW 13.8 % (11.5-14.5); WBC 6.75 X 10*3/uL (4.50-10.00)
[2022-12-12 16:47] LABS: Blood Urea Nitrogen 16.5 mg/dL (9.0-27.0); Carbon Dioxide 30.3 mmol/L (21.6-31.8); Chloride 103 mmol/L (96-109); Potassium 4.3 mmol/L (3.5-5.5); Sodium 142 mmol/L (135-145)
== END | disposition home or self-care (01) ==
LOC: LABWHC1 09:30
PROVIDERS: ATTEND Internal Medicine Interventional Cardiology
DX: Z01.812 Encounter for preprocedural laboratory examination (principal); I25.10 Atherosclerotic heart disease of native coronary artery without angina pectoris; I70.213 Atherosclerosis of native arteries of extremities with intermittent claudication, bilateral legs
CPT/HCPCS: 80051; 82565; 84520; 85027

== ENCOUNTER → 2024-04-08 | Outpatient (CLI) | payer MEDICARE ==
[2024-04-08 18:41] LABS: Basophils # (A) 0.01 X 10*3/uL (0.00-0.10); Basophils % (A) 0.1 %; Eosinophils # (A) 0.22 X 10*3/uL (0.04-0.35); Eosinophils % (A) 2.9 %; HCT 44.4 % (39.6-50.0); HGB 14.6 g/dL (13.0-17.0); Lymphocytes # (A) 2.14 X 10*3/uL (0.90-5.00); MCH 30.8 pg (27.0-32.0); MCHC 32.9 g/dL (32.0-37.0); MCV 93.7 FL (80.0-97.0); Mean Platelet Volume 12.6 FL (9.5-12.2); Monocytes # (A) 0.57 X 10*3/uL (0.20-1.00); Monocytes % (A) 7.5 %; NRBC Per 100 WBC 0 X 10*3/uL (0.00-0.01); Neutrophils # (A) 4.68 X 10*3/uL (1.80-7.70); Neutrophils % (A) 61.4 %; Platelet Count 186 X 10*3/uL (140-440); RBC 4.74 X 10*6/uL (4.40-5.60); RDW 13.2 % (11.5-14.5); WBC 7.63 X 10*3/uL (4.50-10.00)
[2024-04-08 18:50] LABS: Erythrocyte Sedimentation Rate 20 mm/Hr (0-20)
[2024-04-08 18:57] LABS: Anion Gap 13.1 mmol/L (4.00-12.00); Calcium 9.7 mg/dL (8.7-10.3); Carbon Dioxide 27.9 mmol/L (21.6-31.8); Potassium 4.2 mmol/L (3.5-5.5); T4, Free (Free Thyroxine) 1.21 ng/dL (0.80-1.80)
== END | disposition home or self-care (01) ==
LOC: LABWHC1 15:15
PROVIDERS: ATTEND Psychiatry & Neurology Neurology
DX: G30.9 Alzheimer's disease, unspecified (principal)
CPT/HCPCS: 36415; 80051; 82310; 82607; 82746; 83921; 84439; 84443; 85025; 85652; 86592

== ENCOUNTER → 2024-04-17 | Outpatient (CLI) | payer MEDICARE ==
--- NOTE | 2024-04-17 09:01 | CT ---
EXAMINATION TYPE: CT brain wo con DATE OF EXAM: 04/17/2024 7:55 AM COMPARISON: None. CLINICAL INDICATION: Male, 73 years old with history of R27.0 ATAXIA, UNSPECIFIED, Ataxia, memory los s, vision issues TECHNIQUE: CT of the brain is performed utilizing 3 mm thick sections through the posterior fossa and 3 mm thick sections through the remaining calvarium. Study is performed within 24 hours of arrival to the hospital. Contrast used: mL of , (none if empty) CT DLP: 1117.50 mGycm, Automated exposure control for dose reduction was used. FINDINGS: No abnormal hyperdensity is present to suggest an acute intracranial hemorrhage. No mass lesion is evident. No acute infarcts are evident. Mild periventricular white matter hypodensity is present, likely this White matter ischemic changes Ventricles and sulci are appropriate for the patient age. There is mucosal thickening within anterior ethmoid air cells. Mucosal thickening and retention cysts or within maxillary sinuses. IMPRESSION: 1. No acute intracranial process. Follow up MRI can be performed as clinically indicated. 2. Chronic appearing periventricular white matter ischemic changes. [facility], , 04/17/2024 8:59 AM
== END | disposition home or self-care (01) ==
LOC: RADCTMAIN 06:37
PROVIDERS: ATTEND Psychiatry & Neurology Neurology
DX: I67.82 Cerebral ischemia (principal); R27.0 Ataxia, unspecified
CPT/HCPCS: 70450